=== PATIENT | male | born 1965 | race Caucasian/White ===

== ENCOUNTER 2021-04-03 10:28 | Outpatient (CLI) | payer OTHER, SELFPAY ==
[2021-04-03 10:40] VITALS: BP 106/69; PULSE 79; RESP 16; TEMP 37.1; O2SAT 96; BMI 30.9
[2021-04-03 11:13] VITALS: BP 106/67; PULSE 84; RESP 17; O2SAT 95
[2021-04-03 12:10] VITALS: BP 102/67; PULSE 80; RESP 17; TEMP 37.8; O2SAT 99
--- NOTE | 2021-04-08 18:49 | PC.SOCIAL ---
151 antibody infusion follow up call: spoke with patient , she reports patient still isn't feeling good. continues to have weakness, terrible coughing, diarrhea but no fever. discussed with pts if patient didn't get any better to follow up with pcp or come to the ED. verbalized understanding.
== END 2021-04-03 10:29 | disposition home or self-care (01) ==
LOC: OPS 10:39
PROVIDERS: PCP Nurse Practitioner; Visit Provider Family Medicine
DX: U07.1 COVID-19 (principal)
CPT/HCPCS: 96365

== ENCOUNTER 2021-12-04 12:46 | Outpatient (CLI) | payer OTHER, SELFPAY ==
--- NOTE | 2021-12-04 | US_ITS ---
WS: [id number] Abdomen ultrasound, 12/04/2021 Clinical Data: ABD PAIN Comparison: None. Findings: The pancreas shows no cyst, pseudocyst or evidence of pancreatitis. The liver shows no cysts, masses or dilated intrahepatic ducts. The liver measures 16.99 cm. The port al vein shows normal flow. The gallbladder has no stones or sludge. The wall measures 0.2 cm with no pericholecystic fluid. The common bile duct is 0.3 cm and no intraductal abnormalities are noted. The right kidney is 10.6 cm. No cysts, masses or hydronephrosis is seen. The left kidney is 10.5 cm. No cysts, masses or hydronephrosis is seen. The abdominal aorta is not dilated and the inferior vena cava has normal flow. No vascular abnormalit ies are seen. The spleen measures 11.7 cm and there are no intrasplenic masses or capsular abnormalities. US/US abdomen complete* [id number] Impression: Negative abdomen ultrasound.
== END 2021-12-04 12:47 | disposition home or self-care (01) ==
LOC: RAD 12:48
PROVIDERS: PCP Nurse Practitioner; Visit Provider Nurse Practitioner Family
DX: R14.0 Abdominal distension (gaseous) (principal); R79.89 Other specified abnormal findings of blood chemistry; R10.9 Unspecified abdominal pain; R19.7 Diarrhea, unspecified
CPT/HCPCS: 76700

== ENCOUNTER 2022-05-09 09:58 | Outpatient (CLI) | payer OTHER, SELFPAY ==
--- NOTE | 2022-05-09 10:00 | NM_ITS ---
WS: [id number] NUCLEAR MEDICINE HIDA SCAN CLINICAL INFORMATION: abd pain TECHNIQUE: Following intravenous administration of 7.5 mCi of technetium 99m mebrofenin, images of th e abdomen were obtained over the course of 60 minutes. Next, gallbladder ejection fraction was determ ined by obtaining preprandial and one-hour postprandial images of the gallbladder following oral amanda stion of Ensure. COMPARISON: Ultrasound December 04, 2021 FINDINGS: Normal hepatic uptake at 5 minutes. Gallbladder is visualized by 10 minutes. No evidence of acute cho lecystitis. Normal common bile duct and small bowel LEFT llactivity. Gallbladder ejection fraction 60% within normal limits. No evidence of chronic cholecystitis. NM/NM hepatobiliary w phar* [id number] IMPRESSION: 1. No evidence of acute or chronic cholecystitis. 2. Gallbladder ejection fraction 60% within normal limits.
== END 2022-05-09 09:59 | disposition home or self-care (01) ==
PROVIDERS: PCP Nurse Practitioner; Visit Provider Surgery
DX: R10.9 Unspecified abdominal pain (principal)
CPT/HCPCS: 78227; A9537

== ENCOUNTER 2022-06-12 07:34 | Day surgery (SDC) | payer OTHER, SELFPAY ==
[2022-06-12 07:55] VITALS: BP 122/77; PULSE 88; RESP 18; TEMP 36.6; O2SAT 97
[2022-06-12] MEDS: sodium chloride 0.9% 1,000 ML 30 ML IV (08:04)
--- NOTE | 2022-06-12 08:04 | ANES.PREANE2 ---
Pre-Anesthetic Assessment Height/Weight: Height 1.63 m Weight 79.379 kg Temp Pulse Resp BP Pulse Ox O2 Del Method 97.9 F 88 18 122/77 97 06/12/22 07:55 06/12/22 07:55 06/12/22 07:55 06/12/22 07:55 06/12/22 07:55 06/12/22 07:55 Preop Diagnosis: Abdominal pain Operation Date: 06/12/22 09:00 Proposed Procedures p Colonoscopy 64036,R10.9(Not Applicable) - Ted Zavala MD Was Beta Oc taken within 24 hours: N/A Was Clonidine taken within 24 hours: N/A Last intake: Intake Last Liquid Date 06/11/22 Last Liquid Time 22:00 Last Solid Date 06/10/22 Last Solid Time 17:30 Social No alcohol and No tobacco Exam alert, oriented x 3, clear to auscultation bilaterally and regular rate & rhythm Airway Submandibular: within normal limits Cervical ROM: within normal limits Mallampati: Class II Dentition: false Pulmonary None reported CV/HEM None reported None reported Hepatic None reported GI None reported Metabolic None reported Musc/skel None reported Neuropsych None reported Anesthetic Plan ASA status: 1 Anesthesia: MAC Risk of > 500 ml blood loss (7ml/kg in children): No Medications/Allergies Home Medications Medication Instructions Recorded Confirmed Last Taken Type No Known Home Medications 06/10/22 06/12/22 Unknown History Allergies Allergy/AdvReac Type Severity Reaction Status Date / Time No Known Allergies Allergy Verified 06/12/22 08:43 [facility] Anesthesia Social History Smoking and tobacco status: never smoked Data Anesthesia Cardiac Studies: No Data to Display
--- NOTE | 2022-06-12 08:41 | P.HP_ITS ---
Same Day Surgery H&P Indication for Procedure/HPI DATE OF PROCEDURE: June 12, 2022 CHIEF COMPLAINT/INDICATIONFOR SURGICAL PROCEDURE: I am Here for colonoscopy PREOP DIAGNOSIS: Abdominal pain PLANNED PROCEDURE: Operation Date: 06/12/22 09:00 Proposed Procedures p Colonoscopy 36263,R10.9(Not Applicable) - Ted Zavala MD 03/26/2022 Is a pleasant 56 years old gentleman referred to my practice with history of crampy abdominal pain particularly in the lower part, gets better when he has a bowel movement and does not seem he is aware of anything that would make it worse.? Except for postprandial discomfort when he does have greasy food.? Patient reports that the pain is not being referred, his 56 and no reporting of previous colonoscopies. Had a previous ultrasound of the liver and gallbladder that reported as normal except for the liver measures 17 cm likely there is a component of fatty liver otherwise normal gallbladder Interim history 05/12/2022 Patient comes today for follow-up via telehealth status post HIDA scan study that did show; 1.? No evidence of acute or chronic cholecystitis. 2.? Gallbladder ejection fraction 60% within normal limits. ?patient is scheduled for colonoscopy 06/12/2022 Patient comes today for diagnostic colonoscopy ROS All systems have been reviewed negative except as for the above or per problem list. Medications/Allergies* Home Medications Medication Instructions Recorded Confirmed Type No Known Home Medications 06/10/22 06/12/22 History Allergies/Adverse Reactions Allergy/AdvReac Type Severity Reaction Status Date / Time No Known Allergies Allergy Verified 06/12/22 08:43 Current Medications: Generic Name Dose Route Start Last Admin Trade Name Freq PRN Reason Stop Dose Admin Sodium Chloride 1,000 mls @ 30 mls/hr 06/12/22 07:45 06/12/22 08:04 Sodium Chloride 0.9% IV 30 mls/hr .Q24H KRISTIAN Administration Pertinent History/Comorbid Conditions* Social History Smoking and tobacco status: never smoked Pertinent Exam Findings alert, oriented x 3, regular rate & rhythm and procedure specific exam findings (Abdominal exam nontender nondistended soft) Recommendations Surgery/Procedure today ( colonoscopy with possible biopsy) Coding Level of Care Code Acute [employer]
[2022-06-12 09:02] VITALS: BP 105/70; RESP 18; TEMP 36.2; O2SAT 96
--- NOTE | 2022-06-12 09:06 | ANE.PACU2 ---
Inpatient post-anesthesia follow up: Airway intact: Yes Vital signs: Temperature 97.2 F Pulse Rate 88 Respiratory Rate 18 Blood Pressure 105/70 Pulse Oximetry 96 Oxygen Delivery Me thod Room Air Oxygen Flow Rate Fraction of Inspir ed Oxygen Hydration adequate: Yes Nausea and vomiting: No Pain level: 1 Mental status: Baseline
[2022-06-12 09:10] VITALS: BP 137/94; PULSE 71; RESP 18; TEMP 36.2; O2SAT 96
== END 2022-06-12 09:36 | disposition home or self-care (01) ==
PROVIDERS: PCP Nurse Practitioner; Visit Provider Surgery
PROC: 0DJD8ZZ Inspection of Lower Intestinal Tract, Via Natural or Artificial Opening Endoscopic (ICD-10-PCS; CPT 45378; principal; 2022-06-12 09:00)
DX: R10.9 Unspecified abdominal pain (principal); K57.30 Diverticulosis of large intestine without perforation or abscess without bleeding
CPT/HCPCS: 45378; J2704; J7030